=== PATIENT | female | born 1955 | race Caucasian/White ===

== ENCOUNTER 2022-08-15 00:44 | Observation (INO) | payer BC ==
[2022-08-15] MEDS ORDERED: hydrALAZINE 20 MG/ML VIAL ONE (01:10)
[2022-08-15] MEDS ORDERED: Aspirin Chewable 81 MG TAB ONE (01:10)
[2022-08-15 01:23] LABS: #Basophils 0.1 10x3/uL (0.0-0.2); #Eosinphils 0.3 10x3/uL (0.0-0.5); #Monocytes 0.6 10x3/uL (0.0-1.1); #Neutrophils 3.2 10x3/uL (1.5-8.4); %Eosinophils 4.6 % (0.0-6.0); %Lymphocytes 37.3 % (18.0-47.0); %Monocytes 8.9 % (0.0-10.0); %Neutrophils 48.1 % (40.0-75.0); Hemoglobin 14.7 g/dL (12.0-15.5); Mean Corpuscular HGB CONC 33.6 g/dL (32.0-36.0); Mean Corpuscular Hemoglobin 27.7 pg (27.0-33.0); Mean Corpuscular Volume 82.6 fl (81.6-98.3); Mean Platelet Volume 10.3 fl (7.4-10.4); Platelet Count 230 10x3/uL (150-450); RBC Distribution Width 13.2 % (11.5-14.5); White Blood Cell (WBC) Count 6.7 10x3/uL (3.5-10.5)
[2022-08-15 01:29] LABS: INR-International Normal Ratio 0.9; PTT 30.2 sec (22.0-33.0)
[2022-08-15 01:34] LABS: ALT (SGPT) 15 U/L (8-55); AST (SGOT) 20 U/L (5-34); Albumin 4.4 g/dL (3.4-4.8); Alkaline Phosphatase 63 U/L (40-110); Anion Gap 15 mmol/L (10-20); BUN (Urea Nitrogen) 16 mg/dL (9.8-20.1); Bilirubin, Total 0.4 mg/dL (0.2-1.2); Calc. Creatinine Clearance 0 mL/min (70-130); Calcium 9.7 mg/dL (7.8-10.44); Carbon Dioxide 26 mmol/L (23-31); Chloride 105 mmol/L (98-107); Estimated GFR 67; Globulin 2.3 g/dL (2.4-3.5); Glucose 108 mg/dL (80-115); Potassium 3.7 mmol/L (3.5-5.1); Protein, Total 6.7 g/dL (5.8-8.1); Sodium 142 mmol/L (136-145)
[2022-08-15 02:18] LABS: SARS-CoV-2 NAA Rapid Test Not Detected (NotDetected)
[2022-08-15] MEDS ORDERED: FLU VACC QS2022-23(6MOS UP)/PF 60 MCG/0.5 ML SYRINGE IM ONE (05:00)
[2022-08-15] MEDS ORDERED: Nitroglycerin 0.4 MG TAB (25 Tab Bottle) SL PRN (05:43)
[2022-08-15] MEDS: Flecainide 50 MG TAB PO SCH ×2 (07:58→20:08)
[2022-08-15] MEDS: Apixaban 5 MG TAB PO SCH ×2 (07:58→20:08)
[2022-08-15] MEDS: Carvedilol 12.5 MG TAB PO SCH ×2 (07:58→16:38)
[2022-08-15] MEDS: Aspirin Chewable 81 MG TAB PO SCH (07:58)
[2022-08-15 08:11] LABS: Cardiac Risk 3.1 (Less than 4.5); Cholesterol 184 mg/dl (< 200 Desired); HDL Cholesterol 60 mg/dL (>60 Neg Risk); LDL Cholesterol, Calculated 114 mg/dL; Triglycerides 49 mg/dL (Less than 150)
[2022-08-15 08:14] LABS: Troponin I Less than 0.010 ng/mL (< 0.028)
[2022-08-15] MEDS ORDERED: Lisinopril 5 MG TAB PO SCH (11:00)
[2022-08-15 11:12] LABS: Troponin I Less than 0.010 ng/mL (< 0.028)
[2022-08-15] MEDS ORDERED: Lidocaine 2% Viscous Solution 20 ML, Aluminum & Magnesium Hydroxide 30 ML SSW SCH (18:00)
[2022-08-15] MEDS ORDERED: Labetalol HCl 100 MG/20 ML VIAL SLOW IVP SCH (23:30)
[2022-08-16 08:13] VITALS: BP 127/66; TEMP 97.5
[2022-08-16] MEDS: Carvedilol 12.5 MG TAB PO SCH (08:36)
[2022-08-16] MEDS: Flecainide 50 MG TAB PO SCH (08:36)
[2022-08-16] MEDS: Aspirin Chewable 81 MG TAB PO SCH (08:36)
[2022-08-16] MEDS: Apixaban 5 MG TAB PO SCH (08:36)
[2022-08-16] MEDS ORDERED: Lisinopril 5 MG TAB PO SCH (09:00)
[2022-08-16 10:26] VITALS: BMI 29.0
== END 2022-08-16 12:00 | disposition home or self-care (01) ==
LOC: CSHERS 00:44 → INTOOBSV 03:24 → CSHICU 03:24 → CSHTELE 21:09
PROVIDERS: ADMIT Emergency Medicine; ATTEND Family Medicine
DX: I16.0 Hypertensive urgency (principal); R07.89 Other chest pain; R10.13 Epigastric pain; M54.9 Dorsalgia, unspecified; I48.0 Paroxysmal atrial fibrillation; I10 Essential (primary) hypertension; R51.9 Headache, unspecified; Z20.822 Contact with and (suspected) exposure to COVID-19; Z79.82 Long term (current) use of aspirin; Z79.01 Long term (current) use of anticoagulants; Z79.899 Other long term (current) drug therapy; Z88.0 Allergy status to penicillin
CPT/HCPCS: 36415; 71045; 80053; 80061; 83735; 84484; 85025; 85610; 85730; 93005; 93306; 96374; 96375; G0378; J0360; U0002

== ENCOUNTER 2022-09-09 11:59 | Inpatient (IN) | payer BC ==
[~2022-09-09 11:59] MED LIST: Iopamidol 300 61% 100 ML VIAL FS ONE
[2022-09-09 13:07] LABS: #Eosinphils 0.3 10x3/uL (0.0-0.5); #Monocytes 0.6 10x3/uL (0.0-1.1); #Neutrophils 6.2 10x3/uL (1.5-8.4); %Basophils 0.4 % (0.0-2.0); %Eosinophils 3.6 % (0.0-6.0); %Lymphocytes 13.7 % (18.0-47.0); %Neutrophils 74.9 % (40.0-75.0); Hemoglobin 13.5 g/dL (12.0-15.5); Mean Corpuscular HGB CONC 33.8 g/dL (32.0-36.0); Mean Corpuscular Hemoglobin 28.7 pg (27.0-33.0); Mean Corpuscular Volume 84.9 fl (81.6-98.3); Mean Platelet Volume 10.4 fl (7.4-10.4); Platelet Count 213 10x3/uL (150-450); RBC Distribution Width 13.3 % (11.5-14.5); Red Blood Cell (RBC) Count 4.71 10x6/uL (3.90-5.03); White Blood Cell (WBC) Count 8.3 10x3/uL (3.5-10.5)
[2022-09-09 13:14] LABS: ALT (SGPT) 9 U/L (8-55); AST (SGOT) 12 U/L (5-34); Albumin 3.5 g/dL (3.4-4.8); Alkaline Phosphatase 44 U/L (40-110); Anion Gap 13 mmol/L (10-20); BUN (Urea Nitrogen) 12 mg/dL (9.8-20.1); Bilirubin, Total 0.5 mg/dL (0.2-1.2); Calc. Creatinine Clearance 0 mL/min (70-130); Carbon Dioxide 26 mmol/L (23-31); Chloride 106 mmol/L (98-107); Estimated GFR 71; Globulin 2.5 g/dL (2.4-3.5); Glucose 112 mg/dL (80-115); Potassium 3.6 mmol/L (3.5-5.1); Sodium 141 mmol/L (136-145)
[2022-09-09 13:20] LABS: Bilirubin 1+ (Negative); Blood, Urine 10 (Negative); Clarity Cloudy (Clear); Glucose, Urine (Dipstick) Normal (Negative); Ketone, Urine 5 mg/dL (Negative); Leukocyte 100 (Negative); Nitrite Negative (Negative); Protein, Urine (Dipstick) 30 mg/dl (Neg-Trace); Specific Gravity, Urine 1.025 (1.005-1.030)
[2022-09-09 13:31] LABS: Bacteria/HPF 1+ HPF (None Seen); Calcium Oxalate Crystals 3+ HPF (None Seen); Mucous/LPF 1+ LPF (<2+); RBC/HPF 0-3 HPF (0-3)
[2022-09-09] MEDS ORDERED: metroNIDAZOLE 500 MG/100 ML BAG ONE (14:12)
[2022-09-09] MEDS ORDERED: Acetaminophen 325 MG TAB PO PRN (17:43)
[2022-09-09] MEDS ORDERED: Ondansetron ODT 4 MG TAB PO PRN (17:43)
[2022-09-09] MEDS ORDERED: Senokot S 8.6-50 MG TAB PO PRN (17:43)
[2022-09-09] MEDS ORDERED: Ondansetron PF 4 MG/2 ML Vial IVP PRN (17:43)
[2022-09-09] MEDS ORDERED: Morphine 2 MG/ML VIAL SLOW IVP PRN (17:45)
[2022-09-09 18:20] LABS: Hemoglobin 13.4 g/dL (12.0-15.5)
[2022-09-09] MEDS: Sodium Chloride 0.9% 1,000 ML IV SCH (18:23)
[2022-09-09 20:56] VITALS: BMI 27.4
[2022-09-09] MEDS ORDERED: Carvedilol 25 MG TAB PO SCH (21:45)
[2022-09-09] MEDS: Flecainide 50 MG TAB PO SCH (21:54)
[2022-09-09] MEDS: metroNIDAZOLE 500 MG in Premix Bag 1 BAG IVPB SCH (21:55)
[2022-09-10 04:07] LABS: #Eosinphils 0.4 10x3/uL (0.0-0.5); #Monocytes 0.5 10x3/uL (0.0-1.1); #Neutrophils 4.6 10x3/uL (1.5-8.4); %Basophils 0.4 % (0.0-2.0); %Lymphocytes 20.6 % (18.0-47.0); %Monocytes 7.2 % (0.0-10.0); %Neutrophils 66.4 % (40.0-75.0); Hemoglobin 12.2 g/dL (12.0-15.5); Mean Corpuscular HGB CONC 33.2 g/dL (32.0-36.0); Mean Corpuscular Volume 84.2 fl (81.6-98.3); Mean Platelet Volume 9.8 fl (7.4-10.4); Platelet Count 174 10x3/uL (150-450); RBC Distribution Width 13.3 % (11.5-14.5); Red Blood Cell (RBC) Count 4.36 10x6/uL (3.90-5.03); White Blood Cell (WBC) Count 6.9 10x3/uL (3.5-10.5)
[2022-09-10 04:17] LABS: Anion Gap 10 mmol/L (10-20); BUN (Urea Nitrogen) 8 mg/dL (9.8-20.1); Calc. Creatinine Clearance 83 mL/min (70-130); Calcium 8.6 mg/dL (7.8-10.44); Carbon Dioxide 24 mmol/L (23-31); Chloride 109 mmol/L (98-107); Estimated GFR 86; Glucose 95 mg/dL (80-115); Potassium 3.7 mmol/L (3.5-5.1); Sodium 139 mmol/L (136-145)
[2022-09-10] MEDS ORDERED: Pantoprazole 40 MG VIAL IVP SCH ×2 (05:30→09:00)
[2022-09-10] MEDS: metroNIDAZOLE 500 MG in Premix Bag 1 BAG IVPB SCH ×3 (05:36→21:14)
[2022-09-10] MEDS: Sodium Chloride 0.9% 1,000 ML IV SCH (08:22)
[2022-09-10] MEDS: Carvedilol 25 MG TAB PO SCH ×2 (08:22→16:50)
[2022-09-10] MEDS: Flecainide 50 MG TAB PO SCH ×2 (08:22→21:14)
[2022-09-10] MEDS: cefTRIAXone\\ROCEPHIN 2 GM in Sodium Chloride 0.9% 100 ML IVPB SCH (13:26)
[2022-09-10 18:44] LABS: Hemoglobin 11.8 g/dL (12.0-15.5)
[2022-09-11 04:54] LABS: Anion Gap 12 mmol/L (10-20); BUN (Urea Nitrogen) 6 mg/dL (9.8-20.1); Calc. Creatinine Clearance 88 mL/min (70-130); Calcium 8.8 mg/dL (7.8-10.44); Carbon Dioxide 25 mmol/L (23-31); Chloride 108 mmol/L (98-107); Estimated GFR 91; Glucose 91 mg/dL (80-115); Potassium 3.3 mmol/L (3.5-5.1); Sodium 142 mmol/L (136-145)
[2022-09-11] MEDS: metroNIDAZOLE 500 MG in Premix Bag 1 BAG IVPB SCH (05:16)
[2022-09-11 05:33] LABS: #Eosinphils 0.4 10x3/uL (0.0-0.5); #Monocytes 0.5 10x3/uL (0.0-1.1); #Neutrophils 2.9 10x3/uL (1.5-8.4); %Basophils 0.8 % (0.0-2.0); %Eosinophils 8.5 % (0.0-6.0); %Lymphocytes 25.8 % (18.0-47.0); %Monocytes 9.6 % (0.0-10.0); %Neutrophils 54.9 % (40.0-75.0); Mean Corpuscular HGB CONC 33.5 g/dL (32.0-36.0); Mean Corpuscular Hemoglobin 28.2 pg (27.0-33.0); Mean Corpuscular Volume 84.2 fl (81.6-98.3); Mean Platelet Volume 10.9 fl (7.4-10.4); Platelet Count 194 10x3/uL (150-450); RBC Distribution Width 13.2 % (11.5-14.5); Red Blood Cell (RBC) Count 4.25 10x6/uL (3.90-5.03); White Blood Cell (WBC) Count 5.2 10x3/uL (3.5-10.5)
[2022-09-11] MEDS ORDERED: Pantoprazole 40 MG VIAL IVP SCH (09:00)
[2022-09-11] MEDS: Carvedilol 25 MG TAB PO SCH (09:05)
[2022-09-11] MEDS: Flecainide 50 MG TAB PO SCH (09:06)
[2022-09-11 12:40] VITALS: BP 155/86; TEMP 98.5
[2022-09-11] MEDS: cefTRIAXone\\ROCEPHIN 2 GM in Sodium Chloride 0.9% 100 ML IVPB SCH (13:55)
== END 2022-09-11 13:58 | disposition home or self-care (01) | DRG 378 ==
LOC: CSHERS 11:59 → CSHERHOLD 15:45 → CSHTELE 20:58
PROVIDERS: ADMIT Emergency Medicine; ATTEND Hospitalist
DX: K57.33 Diverticulitis of large intestine without perforation or abscess with bleeding (principal); N39.0 Urinary tract infection, site not specified; E78.5 Hyperlipidemia, unspecified; K21.9 Gastro-esophageal reflux disease without esophagitis; I10 Essential (primary) hypertension; I48.0 Paroxysmal atrial fibrillation; Z88.0 Allergy status to penicillin; Z79.01 Long term (current) use of anticoagulants; Z79.899 Other long term (current) drug therapy; Z98.890 Other specified postprocedural states; Z79.82 Long term (current) use of aspirin; Z20.822 Contact with and (suspected) exposure to COVID-19
CPT/HCPCS: 36415; 74177; 80048; 80053; 81003; 81015; 82274; 83690; 85025; 86850; 86900; 86901; 87086; 94760; C9113; J0696; J1956; J3490; J7050; Q9967; U0003; U0005

== ENCOUNTER 2022-10-02 11:59 | Outpatient (CLI) | payer BC | END 2022-10-02 12:00 | disposition home or self-care (01) | LOC: CSHMAMMO 11:59 | PROVIDERS: ATTEND Family Medicine | DX: Z12.31 Encounter for screening mammogram for malignant neoplasm of breast (principal) | CPT/HCPCS: 77063; 77067 ==

== ENCOUNTER 2022-12-16 14:52 | Outpatient (CLI) | payer BC | END 2022-12-16 14:53 | disposition home or self-care (01) | LOC: CSHRAD 14:52 | PROVIDERS: ATTEND Family Medicine | DX: M25.551 Pain in right hip (principal) ==

== ENCOUNTER 2024-06-06 12:10 | Emergency (ER) | payer BC ==
[2024-06-06 12:32] LABS: Bilirubin Neg (Negative); Blood, Urine Negative (Negative); Clarity Clear (Clear); Glucose, Urine (Dipstick) Normal (Negative); Ketone, Urine Negative (Negative); Leukocyte Negative (Negative); Nitrite Negative (Negative); Protein, Urine (Dipstick) Negative (Neg-Trace); Specific Gravity, Urine 1.005 (1.005-1.030); Urobilinogen Normal mg/dL (Less than 2)
[2024-06-06 12:40] LABS: Bacteria/HPF Rare-Few HPF (None Seen); CAUTI Indications for Culture Pelvic or flank pain; RBC/HPF None Seen HPF (0-3); Squamous Epithelial 0-3 HPF (0-3); Urine Culture Reflex No No; WBC/HPF None Seen HPF (0-3)
[2024-06-06 12:53] LABS: #Basophils 0.02 10x3/uL (0.0-0.2); #Eosinophils 0.12 10x3/uL (0.0-0.5); #Monocytes 0.57 10x3/uL (0.0-1.1); #Neutrophils 4.34 10x3/uL (1.5-8.4); %Basophils 0.3 % (0.0-2.0); %Eosinophils 1.9 % (0.0-6.0); %Lymphocytes 20.4 % (18.0-47.0); %Monocytes 8.9 % (0.0-10.0); Hematocrit 45.9 % (34.9-44.5); Mean Corpuscular HGB CONC 32.7 g/dL (32.0-36.0); Mean Corpuscular Hemoglobin 28.2 pg (27.0-33.0); Mean Corpuscular Volume 86.4 fL (81.6-98.3); Mean Platelet Volume 10.2 fL (7.4-10.4); Platelet Count 216 10x3/uL (150-450); RBC Distribution Width 12.6 % (11.5-14.5); Red Blood Cell (RBC) Count 5.31 10x6/uL (3.90-5.03); White Blood Cell (WBC) Count 6.4 10x3/uL (3.5-10.5)
[2024-06-06 13:08] LABS: ALT (SGPT) 20 U/L (8-55); AST (SGOT) 24 U/L (5-34); Albumin 3.9 g/dL (3.4-4.8); Alkaline Phosphatase 59 U/L (40-110); Anion Gap 12 mmol/L (10-20); BUN (Urea Nitrogen) 24 mg/dL (9.8-20.1); Bilirubin, Total 0.4 mg/dL (0.2-1.2); Calc. Creatinine Clearance 0 mL/min (70-130); Calcium 10.1 mg/dL (7.8-10.44); Carbon Dioxide 26 mmol/L (23-31); Chloride 105 mmol/L (98-107); Estimated GFR 76; Globulin 2.9 g/dL (2.4-3.5); Glucose 103 mg/dL (80-115); Potassium 4.1 mmol/L (3.5-5.1); Protein, Total 6.8 g/dL (5.8-8.1); Sodium 139 mmol/L (136-145)
== END 2024-06-06 16:09 | disposition home or self-care (01) ==
LOC: CSHERS 12:10
DX: K50.90 Crohn's disease, unspecified, without complications (principal); R10.9 Unspecified abdominal pain; I10 Essential (primary) hypertension
CPT/HCPCS: 36415; 74177; 80053; 81001; 83690; 85025; 93005; 93010; Q9967

== ENCOUNTER 2025-04-27 08:35 | Outpatient (CLI) | payer BC | END 2025-04-27 08:36 | disposition home or self-care (01) | LOC: CSHSLEEP 08:35 | PROVIDERS: ATTEND Family Medicine | DX: G47.10 Hypersomnia, unspecified (principal); G47.61 Periodic limb movement disorder; R06.89 Other abnormalities of breathing; F51.9 Sleep disorder not due to a substance or known physiological condition, unspecified; G47.419 Narcolepsy without cataplexy; G47.9 Sleep disorder, unspecified; R53.83 Other fatigue; R51.9 Headache, unspecified; F41.9 Anxiety disorder, unspecified; E66.9 Obesity, unspecified; Z68.30 Body mass index [BMI] 30.0-30.9, adult; G47.00 Insomnia, unspecified; I25.10 Atherosclerotic heart disease of native coronary artery without angina pectoris; G47.33 Obstructive sleep apnea (adult) (pediatric) | CPT/HCPCS: 95800 ==